=== PATIENT | male | born 1965 | race Two or more races ===

== ENCOUNTER 2024-06-23 00:18 | Emergency (ER) | payer OTHER ==
[2024-06-23 00:29] VITALS: BP 196/98; PULSE 76; RESP 20; TEMP 97.7; BMI 23.7
[2024-06-23] MEDS ORDERED: DIPHTH,PERTUSS(ACELL),TET 0.5 ML DISP.SYRIN IM ONE (01:15)
[2024-06-23] MEDS: DIPHTH,PERTUSS(ACELL),TET 0.5 ML DISP.SYRIN IM ONE (01:18)
== END 2024-06-23 01:19 | disposition home or self-care (01) ==
LOC: JER 00:18
PROC: 3E0234Z Introduction of Serum, Toxoid and Vaccine into Muscle, Percutaneous Approach (ICD-10-PCS; principal; 2024-06-23)
DX: S50.811A Abrasion of right forearm, initial encounter (principal); W55.01XA Bitten by cat, initial encounter; Z23 Encounter for immunization
CPT/HCPCS: 90471; 90715; 99284-25